=== PATIENT | female | born 1965 | race Caucasian/White ===

== ENCOUNTER → 2017-05-10 | Outpatient (CLI) | payer OTHER ==
[~2017-05-10] MED LIST: ALEV220T14 PO; CETI10 PO; LEVO.125 PO; LISI-515 PO; LORA0.5T PO; SULF1SOL4 OD; TOPR100T PO
[2017-05-10 10:10] LABS: BILIRUBIN, URINE NEG (NEG); BLOOD, URINE NEG (NEG); GLUCOSE,URINE NEG (NEG); KETONE, URINE NEG (NEG); MUCUS URINE FEW /lpf (OCC); NITRITE,URINE NEG (NEG); SQUAMOUS EPITHELIAL CELL URINE 1 /hpf (0-5); URINE COLOR YELLOW (YELLW/STRAW); URINE LEUKOCYTE ESTERASE NEG (NEG)
[2017-05-10 10:11] LABS: BASOPHIL % 0.7 % (0.0-2.0); EOSINOPHIL # 0.2 TH/MM3 (0-0.4); EOSINOPHIL % 2.7 % (0.0-4.0); HEMATOCRIT 42.2 % (35.0-46.0); HEMOGLOBIN 14.5 GM/DL (11.6-15.3); LYMPH % 20.7 % (9.0-44.0); LYMPHOCYTE # 1.2 TH/MM3 (1.0-4.8); MEAN CELL VOLUME 94.2 FL (80.0-100.0); MEAN CORPUSCULAR HEMOGLOBIN 32.3 PG (27.0-34.0); MEAN CORPUSCULAR HGB CONC 34.3 % (32.0-36.0); MEAN PLATELET VOLUME 8.6 FL (7.0-11.0); MONO % 9.8 % (0.0-8.0); MONOCYTE # 0.6 TH/MM3 (0-0.9); NEUT % 66.1 % (16.0-70.0); PLATELET COUNT 258 TH/MM3 (150-450); RED BLOOD COUNT 4.48 MIL/MM3 (4.00-5.30); RED CELL DISTRIBUTION WIDTH 12.9 % (11.6-17.2)
[2017-05-10 10:20] LABS: PROTHROMBIN TIME - PATIENT 10.6 SEC (9.8-11.6)
[2017-05-10 10:29] LABS: BICARBONATE 28.5 MEQ/L (21.0-32.0); CALCIUM 8.4 MG/DL (8.5-10.1); CREATININE 0.58 MG/DL (0.50-1.00)
--- NOTE | 2017-05-11 18:48 | EKG ---
Date Performed: 05/10/2017 Time Performed: 08:33:32 PTAGE: 51 years EKG: Sinus rhythm NORMAL ECG NO PREVIOUS TRACING DOCTOR: Lm Suárez Interpretating Date/Time 05/11/2017 18:43:35
== END ==
LOC: CPRE 08:05
PROVIDERS: ATTEND Orthopaedic Surgery Orthopaedic Surgery of the Spine
DX: Z01.810 Encounter for preprocedural cardiovascular examination (principal); Z01.812 Encounter for preprocedural laboratory examination; Z79.01 Long term (current) use of anticoagulants; M16.11 Unilateral primary osteoarthritis, right hip
CPT/HCPCS: 36415; 80048; 81001; 85025; 85610; 85730; 93005

== ENCOUNTER 2017-05-25 05:28 | Inpatient (IN) | payer OTHER ==
[~2017-05-25] VITALS: Ht 175.3 cm; Wt 74.6 kg
[~2017-05-25 05:28] MED LIST changes: -SULF1SOL4 OD
[2017-05-25] MEDS ORDERED: LACTATED RINGER'S 1000 ML IV PRN (06:00)
[2017-05-25] MEDS ORDERED: METOPROLOL TARTRATE 25 MG TAB PO PRN (06:00)
[2017-05-25] MEDS ORDERED: CHLORHEXIDINE GLUCONATE 2 % 1 PACK (2 CLOTHS) TOPICAL PRN (06:00)
[2017-05-25] MEDS ORDERED: TRANEXAMIC ACID INJ 750 MG in SODIUM CHLORIDE 0.9% INJ 100 ML IV SCH (06:00)
[2017-05-25] MEDS ORDERED: SODIUM CHLORID 0.9% 500 ML IV PRN (06:00)
[2017-05-25] MEDS ORDERED: VANCOMYCIN 1000 MG/NS 250 ML (for <70 kg) IV SCH ×2 (06:00)
[2017-05-25] MEDS ORDERED: CHLORHEXIDINE GLUCONATE 4% SOLN 120 ML BTL TOPICAL SCH (06:00)
[2017-05-25] MEDS ORDERED: POVIDONE IODINE 5% (ANTISEPSIS KIT) 4 APPLICATIONS EACH NARE PRN (06:00)
[2017-05-25] MEDS ORDERED: ceFAZolin 2 GM PREMIX 50 ML IV SCH (06:00)
[2017-05-25] MEDS ORDERED: EXPAREL PERI-ARTICULAR INJECTION (TOTAL VOL. 60 ML) P-ARTICULR SCH ×2 (06:00)
[2017-05-25] MEDS ORDERED: VANCOMYCIN 1 GM/200 ML PREMIX ON-CALL IV SCH (06:00)
[2017-05-25] MEDS ORDERED: GENTAMICIN SULFATE 80 MG/2 ML VIAL ONE (06:25)
[2017-05-25] MEDS ORDERED: BUPIVACAINE/EPINEPHRINE 0.25% 50 ML VIAL ONE (06:25)
[2017-05-25] MEDS ORDERED: BUPIVACAINE/EPINEPHRINE 0.25% PF 10 ML VIAL ONE (06:26)
--- NOTE | 2017-05-25 09:14 | PD.OP ---
cc: Duong He MD Operative Report Date of Surgery: May 25, 2017 Preoperative Diagnosis: Osteoarthritis right hip Postoperative Diagnosis: Same Procedure: Right total hip replacement arthroplasty, direct anterior exposure Anesthesia: Gen. Surgeon: Duong He Service Rig Operator(s): SHELTON Sanders Operation and Findings: EBL: 500 cc INDICATION: This patient presents with significant hip pain related to severe osteoarthritis of the right hip with loss of range of motion. Despite extensive conservative care this patient continues to be painful and now presents for surgical treatment. NOTE: Dilia Sanders PA-C was present for the entire surgical procedure as my facilities assistant. In my medical opinion her skill and care was necessary for the proper management of this patient. COMPONENTS: COMPANY: [employer] CUP: [place], 58 mm, 100 series, gription surface LINER: Altrx 36, neutral STEM: [place], standard offset, size 13, hydroxyapatite-coated HEAD: Ceramic, 36, +1.5, 02/18 taper PROCEDURE: This patient was brought to the operating room and anesthetized in the supine position and positioned on the fracture table with both legs held extended. The right hip and leg was scrubbed with alcohol followed by Hibiclens followed by ChloraPrep and draped sterilely. Antibiotics were given within routine time window and a timeout was done. A 4 inch incision was made starting 2 cm distal and 2 cm lateral to the anterior superior iliac spine. The fascia anahi was opened longitudinally. The interval between the fascia anahi and the rectus was opened down to the capsule of the hip joint. Retractors were positioned allowing good visualization of the capsule. This was opened longitudinally and flaps were created. Stay sutures were utilized. Exposure was excellent. The neck was cut at the proper location using fluoroscopy as a guide. The head was removed. Deep retractors were positioned allowing good visualization of the acetabulum. Acetabulum was deepened down to the floor starting with a proper size reamer and reaming up to 57 mm. A trial was utilized. Fluoroscopy was used to check position and confirmed satisfactory alignment. The rim was reamed with a 58 mm reamer and the final cup was positioned in approximately 20 of anteversion and 40-45 of abduction. Position was satisfactory. A single hole eliminator was positioned followed by the final liner. The lifting hook was utilized. The leg was dropped to the floor, maximally externally rotated and brought across the midline. Retractors were positioned. A box osteotome was utilized followed by progressive broaching to the proper stem size. Trial reduction showed excellent alignment and fit. With 60 of external rotation the leg was dropped to the floor without evidence of anterior subluxation. The wound was irrigated. The final stem was inserted and was found to be very stable. The final reduction using the final head. Stability was as previously noted. Intraoperative x-rays were taken. The wound was irrigated copiously. Hemostasis was controlled. Local anesthesia was utilized. The capsule was repaired with #2 Tycron sutures. The fascia anahi was repaired with running 0 PDS on a loop. Subcutaneous tissue was approximated with 2-0 Vicryl and skin with running intradermal 3-0 Vicryl followed by Steri-Strips. A sterile dressing was applied. The patient was awakened and taken to the recovery room in satisfactory condition. FINDINGS: There was severe osteoarthritis of the right hip. 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 The final fit and leg length was felt be very satisfactory. No complication was appreciated. Duong He MD May 25, 2017 09:14
[2017-05-25] MEDS ORDERED: MISCELLANEOUS NURSING INFORMATION XX PRN (09:15)
[2017-05-25] MEDS ORDERED: Post-op Orders (for Pharmacy) XX ONE (09:15)
[2017-05-25] MEDS ORDERED: ACETAMINOPHEN/HYDROcodone 325 MG/7.5 MG TAB PO PRN (09:15)
[2017-05-25] MEDS ORDERED: MORPHINE SULFATE 8 MG/ML INJ IM PRN (09:15)
[2017-05-25] MEDS ORDERED: MISCELLANEOUS PHARMACY INFORMATION XX ONE (09:15)
[2017-05-25] MEDS ORDERED: NALOXONE HCL 0.4 MG/ML AMP IV PUSH PRN (09:15)
[2017-05-25] MEDS ORDERED: HYDR-3580 PO (09:22)
[2017-05-25] MEDS ORDERED: ASPI325T33 PO (09:22)
[2017-05-25] MEDS ORDERED: DO NOT ADM ANY ANTICOAGULANT DRUGS PRN (09:24)
--- NOTE | 2017-05-25 09:30 | RADRPT ---
EXAM DATE/TIME: 05/25/2017 07:59 [facility] COMPARISON: FLUOROSCOPY UP TO 1 HR, May 25, 2017, 0:00. INDICATIONS : Right total hip replacement. MEDICAL HISTORY : None. SURGICAL HISTORY : None. ENCOUNTER: Initial ACUITY: 1 day PAIN SCORE: Non-responsive. LOCATION: Right Hip FINDINGS: The patient is post right hip arthroplasty. With the hardware is in excellent position. Alignment is good. CONCLUSION: 1. Good alignment of the orthopedic hardware post right hip arthroplasty. Gene Landeros MD on May 25, 2017 at 9:27 Board Certified Radiologist. This report was verified electronically.
[2017-05-25] MEDS ORDERED: MIDAZOLAM HCL 2 MG/2 ML VIAL ONE (09:39)
[2017-05-25] MEDS ORDERED: MORPHINE SULFATE 4 MG/ML INJ ONE (09:39)
[2017-05-25] MEDS ORDERED: ASPIRIN 81 MG CHEW TAB CHEW ONE (10:00)
[2017-05-25] MEDS: LACTATED RINGER'S 1000 ML INJ 1,000 ML IV SCH ×2 (10:00→22:55)
[2017-05-25] MEDS ORDERED: *morphine SULFATE 4 MG/ML PERIprocedure ONLY ONE (10:32)
[2017-05-25 11:20] VITALS: BP 114/72; PULSE 71; RESP 18; TEMP 98; O2SAT 98
[2017-05-25] MEDS ORDERED: ROCURONIUM INJ 50 MG/5 ML SYRINGE IV PUSH ONE (12:00)
[2017-05-25] MEDS ORDERED: PROPOFOL 200 MG/20 ML AMP IV ONE (12:00)
[2017-05-25] MEDS ORDERED: KETOROLAC TROMETHAMINE 30 MG/ML (IVP) VIAL IV PUSH ONE (12:00)
[2017-05-25] MEDS ORDERED: DEXAMETHASONE SOD PHOS 4 MG/ML VIAL IV ONE (12:00)
[2017-05-25] MEDS ORDERED: ONDANSETRON HCL 4 MG/2 ML VIAL IV ONE (12:00)
[2017-05-25] MEDS ORDERED: PHENYLEPH/NS 1000 MCG/10 ML SYR IV ONE (12:00)
[2017-05-25] MEDS ORDERED: LIDOCAINE HCL 1% PF 5 ML SYRINGE OTHER ONE (12:00)
[2017-05-25 12:11] VITALS: O2SAT 98
[2017-05-25 16:06] VITALS: O2SAT 98
[2017-05-25] MEDS: ASPIRIN EC 81 MG TABEC PO SCH (20:23)
[2017-05-25] MEDS: LISINOPRIL 20 MG TAB PO SCH (20:24)
[2017-05-25] MEDS: METOPROLOL SUCCINATE 50 MG EXTENDED RELEASE TAB PO SCH (20:24)
[2017-05-25 20:30] VITALS: BP 101/63; PULSE 88; RESP 17; TEMP 99.3; O2SAT 98
[2017-05-25] MEDS ORDERED: MAGNESIUM HYDROXIDE SUSP 30 ML CUP PO SCH (21:00)
[2017-05-25] MEDS ORDERED: CETIRIZINE HCL 10 MG TAB PO SCH (21:00)
[2017-05-25] MEDS ORDERED: SENNOSIDES 8.6 MG TAB PO SCH (21:00)
[2017-05-25] MEDS ORDERED: LORazepam 0.5 MG TAB PO PRN (21:00)
[2017-05-25] MEDS: ACETAMINOPHEN/HYDROcodone 325 MG/7.5 MG TAB PO PRN (21:24)
[2017-05-25] MEDS ORDERED: WALKER WHEELS/F1 MIS (21:52)
--- NOTE | 2017-05-25 21:52 | HHI.FF ---
Face to Face Verification Diagnosis: (1) Osteoarthritis of right hip Physical Therapy Gait training, Safety evaluation, Transfer training, bed to chair Hip: Total hip, Protocol: Right, Progress to weight bearing Right LE Weight Bearing: WB as tolerated Additional Instructions PT 3-4 days/wk for 2 weeks. WBAT RightLE. Anterior ARVIN precautions. Gait training. Walker/cane gait assist. Nursing RN Days per Week: 2 x Week(s): 1 Dressing Changes: Do not change dressing Additional Instructions Vitals assessment. Dressing assessment - do not change unless saturated or erythema. Keep dressing sealed and dry. I have seen patient Lakeshia Linares on 05/25/17. My clinical findings support the need for the requested home health care services because: Limited ability to care for self High risk of falls I certify that my clinical findings support that this patient is homebound because: Post-op weakness Unsteady gait/balance Dilia aSnders May 25, 2017 21:52
[2017-05-26 00:15] VITALS: BP 96/57; PULSE 87; RESP 17; TEMP 98.1; O2SAT 97
[2017-05-26 04:20] VITALS: BP 110/70; PULSE 83; RESP 16; TEMP 98.8; O2SAT 99
[2017-05-26] MEDS ORDERED: LEVOTHYROXINE SODIUM 125 MCG TAB PO SCH (06:00)
[2017-05-26 08:00] VITALS: BP 109/72; PULSE 73; RESP 16; TEMP 97; O2SAT 99
[2017-05-26] MEDS: LISINOPRIL 20 MG TAB PO SCH (08:47)
[2017-05-26] MEDS: ASPIRIN EC 81 MG TABEC PO SCH (08:47)
[2017-05-26] MEDS: METOPROLOL SUCCINATE 50 MG EXTENDED RELEASE TAB PO SCH (08:50)
[2017-05-26] MEDS: ACETAMINOPHEN/HYDROcodone 325 MG/7.5 MG TAB PO PRN ×2 (08:54→13:09)
[2017-05-26 11:37] VITALS: BP 96/59; PULSE 78; RESP 18; TEMP 97.9; O2SAT 98
--- NOTE | 2017-05-26 12:52 | HHI.DCPOC ---
Discharge Care Plan Diagnosis: (1) Osteoarthritis of right hip Your Health Problems Are: Difficulty with ADL Incision/Drains Swelling Goals to Promote Your Health * To prevent worsening of your condition and complications * To maintain your health at the optimal level Directions to Meet Your Goals Take your medications as prescribed Follow your dietary instruction Follow activity as directed Keep your appointments as scheduled Take your immunizations and boosters as scheduled If your symptoms worsen call your PCP, if no PCP go to Urgent Care Center or Emergency Room Smoking is Dangerous to Your Health. Avoid second hand smoke Call the 24-hour hour crisis hotline for domestic abuse at Dilia Sanders May 26, 2017 12:52
--- NOTE | 2017-05-26 12:53 | HHI.DS ---
Discharge Summary Admission Date May 25, 2017 at 05:28 Discharge Date: May 26, 2017 Admitting Diagnosis see below Diagnosis: (1) Osteoarthritis of right hip Diagnosis: Principal ICD Codes: M16.11 - Unilateral primary osteoarthritis, right hip Procedures Right total hip arthroplasty, direct anterior Brief History This is a 51 year old female patient with over 2 years of right hip pain. She sought out medical treatment. Xrays were performed showing moderate to severe hip arthritis. She pursued conservative measures including use of aleve, ultram and norco. She decreased her activities substantially and pursued a home exercise program. Because her function began to decline, surgical treatment was recommended in the form of right total hip arthroplasty. She agreed and now presents for the above. Hospital Course Surgical treatment was performed on the day of admission without complication. She recovered well in PACU and was transferred to the orthopaedic floor. Pain was controlled with IV and oral medications. She was compliant with physical therapy and all total hip precautions. After 1 day she was found to be stable and discharge home with home health care with instruction to pursue a high fiber , diet, to the operative hip twice daily and to use his AUGUST hose. She was given prescriptions for [place] 7.5mg and ASA 81mg. Pt Condition on Discharge: Stable Discharge Disposition: Disch w/ Home Health Serv Discharge Instructions Diet Instructions: As Tolerated, No Restrictions, High Fiber Diet Activities You Can Perform: Weight Bearing as [place] Activities to Avoid: Strenuous Activity New Medications: Walker with Front Wheels (Walker with Front Wheels) 1 Mis Mis EA .XX DIRECTED, #[address] (Aspirin EC) 325 Mg Tabdr 81 MG PO BID for Prevent Blood Clot, #60 TAB Hydrocodone/Acetaminophen (Hydrocodone-Acetamin 7.5-325) 7.5 Mg-325 Mg Tablet 1 TAB PO Q4H PRN for PAIN, #50 TAB Continued Medications: Cetirizine (Cetirizine) 10 Mg Tab 10 MG PO HS for Allergies, TAB 0 Refills Levothyroxine (Synthroid) 125 Mcg Tab 125 MCG PO DAILY for Thyroid, #30 TAB 0 Refills Lisinopril (Lisinopril) 20 Mg Tab 20 MG PO BID, #30 TAB 0 Refills Lorazepam (Lorazepam) 0.5 Mg Tab 0.5 MG PO HS PRN for ANXIETY AND/OR INSOMNIA, TAB 0 Refills Metoprolol Succinate ER 24 HR (Toprol XL) 100 Mg Tab 100 MG PO BID, #30 TAB 0 Refills Naproxen Sodium (Aleve Arthritis) 220 Mg Tab 220 MG PO BID PRN for pain, TAB Dilia Sanders May 26, 2017 12:53
--- NOTE | 2017-05-26 12:55 | PD.ORT.PN ---
Subjective Subjective Remarks Doing well. Pain better controlled 'than expected'. No new leg pain below the knee. No CP or SOB. Ready for d/c home today. Objective Vitals Vital Signs Date Time Temp Pulse Resp B/P (MAP) Pulse Ox O2 Delivery O2 Flow Rate FiO2 05/26/17 11:37 97.9 78 18 96/59 (71) 98 05/26/17 08:00 97.0 73 16 109/72 (84) 99 05/26/17 06:03 18 05/26/17 04:20 98.8 83 16 110/70 (83) 99 05/26/17 00:15 98.1 87 17 96/57 (70) 97 05/25/17 20:30 99.3 88 17 101/63 (76) 98 05/25/17 16:06 98 21 I/O 05/25/17 05/25/17 05/25/17 05/26/17 05/26/17 05/26/17 07:00 15:00 23:00 07:00 15:00 23:00 Intake Total 2220 ml 640 ml Output Total 500 ml Balance 1720 ml 640 ml Intake Oral 120 ml 640 ml IV Total 2100 ml Output Estimated Blood Loss 500 ml # Voids 2 # Bowel Movements 0 Procedures Right total hip arthroplasty, direct anterior Objective Remarks Laying in bed NAD VSS at bedside Right LE Hip dressing c/d/i, no new drainage, mild swelling, no erythema +motor at, +sens, +nvi Neg homans Assessment & Plan Ortho Post Op Day #: 1 Problem List: (1) Osteoarthritis of right hip ICD Codes: M16.11 - Unilateral primary osteoarthritis, right hip Qualifiers: Qualified Codes: M16.11 - Unilateral primary osteoarthritis, right hip Assessment and Plan pod#1 s/p R ARVIN, anterior Ortho stable. Doing well. Ok to d/c home w hhc today after PT. PO pain meds. ASA 81mg. PT - WBAT RLE. Anterior arvin precautions. Hold dressing changes unless saturated. F/U in 2 weeks as scheduled. Dilia Sanders May 26, 2017 12:54
[2017-05-26 13:21] LABS: HEMATOCRIT 31.1 % (35.0-46.0); HEMOGLOBIN 10.6 GM/DL (11.6-15.3)
== END 2017-05-26 14:56 | disposition home health service (06) | DRG 470 ==
LOC: HSDI 05:28 → N06A 11:08
PROVIDERS: ADMIT Orthopaedic Surgery Orthopaedic Surgery of the Spine; ATTEND Orthopaedic Surgery Orthopaedic Surgery of the Spine
PROC: 0SR904A Replacement of Right Hip Joint with Ceramic on Polyethylene Synthetic Substitute, Uncemented, Open Approach (ICD-10-PCS; principal; 2017-05-25 07:20)
DX: M16.11 Unilateral primary osteoarthritis, right hip (principal); I10 Essential (primary) hypertension; Q65.89 Other specified congenital deformities of hip; M51.36 Other intervertebral disc degeneration, lumbar region; E03.9 Hypothyroidism, unspecified
CPT/HCPCS: 73502; 76000; 85014; 85018; 86850; 86900; 86901; 86920; 94150; C1776; C9290; J0690; J1100; J1580; J1885; J2250; J2270; J2370; J2405; J3010; J3370; J7120